=== PATIENT | male | born 1955 | race Two or more races ===

== ENCOUNTER 2023-03-17 06:27 | Day surgery (SDC) | payer OTHER | END 2023-03-17 11:55 | disposition home or self-care (01) | LOC: AMB-ENDOS 06:27 | PROVIDERS: ATTEND Colon & Rectal Surgery | DX: D12.3 Benign neoplasm of transverse colon (principal); K64.8 Other hemorrhoids; Z86.010 Personal history of colon polyps; Z20.822 Contact with and (suspected) exposure to COVID-19; K92.1 Melena ==